=== PATIENT | female | born 1995 | race Caucasian/White ===

== ENCOUNTER 2017-01-26 03:07 | Inpatient (IN) ==
[2017-01-26 04:30] LABS: Apearance,Urine CLOUDY (Clear); Bacteria,Urine Occasional /HPF (Few); Bilirubin,Urine Negative (Negative); Blood, Urine Negative (Negative); Glucose,Urine (UA) Negative (Negative); Ketones,Urine Negative (Negative); Mucus,Urine Occasional /LPF (Occasional); Nitrite,Urine Negative (Negative); Protein,Urine Negative; RBC,Urine 4 /HPF (0-4); Squamous Epithelial Cell,Urine Occasional /HPF (0-10); Urine Color Yellow (Yellow); Urine Specific Gravity 1.008 (1.001-1.035); Urine Urobilinogen < 2.0 EU/DL (0.2-1.0); WBC,Urine 22 /HPF (0-6)
--- NOTE | 2017-01-26 07:26 | History and Physical Update ---
History and Physical Update - Dictation Physical: refer to scanned H&P - Physical Exam Mental Status: alert and oriented Heart: regular rate and rhythm Lung: clear to auscultation Abdomen: within normal limits Vitals: within normal limits History and Physical Changes: 39w4d presents in early labor.
[2017-01-26] MEDS ORDERED: LACTATED RINGERS 1,000 ML IV ONE (07:54)
[2017-01-26] MEDS ORDERED: ONDANSETRON 4 MG/2 ML VIAL IV ONE (07:54)
[2017-01-26] MEDS ORDERED: CITRIC ACID/SODIUM CITRATE 30 ML UDCUP PO ONE (07:54)
[2017-01-26] MEDS ORDERED: ePHEDrine 50 MG/ML AMP IV PRN (07:54)
[2017-01-26] MEDS ORDERED: fentaNYL 2 MCG/ROPIV 0.2% EPID 150 ML EPIDURAL SCH (07:54)
[2017-01-26] MEDS ORDERED: FAMOTIDINE 20 MG/2 ML VIAL IV ONE (07:54)
[2017-01-26] MEDS ORDERED: diphenhydrAMINE 50 MG/1 ML VIAL IV PRN (07:54)
[2017-01-26] MEDS ORDERED: PROMETHAZINE 25 MG/1 ML VIAL IM ONE (07:54)
[2017-01-26] MEDS ORDERED: hydrOXYzine HCL 25 MG/1 ML VIAL IM PRN (07:54)
[2017-01-26] MEDS ORDERED: OXYTOCIN/LR 20 UNIT/1,000 ML BAG IV SCH (08:00)
[2017-01-26 08:09] LABS: Basophils % 0.2 % (0.0-0.8); Eosinophils # 0.1 10*3/uL (0.0-0.87); Eosinophils % 0.5 % (0.00-10.9); Hematocrit 37.5 VOL% (35.7-47.0); Hemoglobin 12.9 GM/DL (12.0-16.0); Immature Granulocytes % 0.4 %; Immature Granulocytes Absolute 0.05 #; Lymphocytes % 23.6 % (21.3-54.2); Mean Corpuscular HGB Conc 34.4 GM/DL (32-36); Mean Corpuscular Hemoglobin 31 PG (27-34); Mean Corpuscular Volume 89.7 FL (87-102); Mean Platelet Volume 13.7 FL (9.6-12.0); Monocytes # 0.7 10*3/uL (0.11-0.8); Monocytes % 5.5 % (1.7-12.7); Neutrophils # 8.7 10*3/uL (1.4-7.4); Neutrophils % 69.8 % (38.7-73.9); Platelet Count 171 T/CUMM (130-400); Red Blood Count 4.18 MC/CUMM (3.8-5.5); Red Cell Distribution Width 14.2 % (9.3-17.3); White Blood Count 12.5 T/CUMM (4-12)
[2017-01-26] MEDS: LACTATED RINGERS 1,000 ML IV SCH ×3 (08:56→16:56)
[2017-01-26] MEDS ORDERED: BUTORPHANOL 2 MG/ML VIAL IV PRN (10:52)
[2017-01-26] MEDS ORDERED: miSOPROStol 200 MCG TABLET ONE (15:39)
[2017-01-26] MEDS ORDERED: LANOLIN 50% CREAM 0.3 OZ TUBE TOP PRN (18:24)
[2017-01-26] MEDS ORDERED: ACETAMINOPHEN 325 MG TABLET PO PRN (18:24)
[2017-01-26] MEDS ORDERED: WITCH HAZEL PADS 100/JAR TOP PRN (18:24)
[2017-01-26] MEDS ORDERED: OXYTOCIN/LR 20 UNIT/1,000 ML BAG IV ONE (18:24)
[2017-01-26] MEDS ORDERED: BISACODYL 10 MG SUPP RECTAL PRN (18:24)
[2017-01-26] MEDS ORDERED: HYDROCORTISONE 2.5% RECTAL CREAM 30 GM TUBE TOP PRN (18:24)
[2017-01-26] MEDS ORDERED: RHO(D) IMMUNE GLOBULIN 300 MCG SYRINGE IM ONE (18:24)
[2017-01-26] MEDS ORDERED: MEASLES/MUMPS/RUBELLA VACCINE 0.5 ML VIAL SUBCUT ONE (18:24)
[2017-01-26] MEDS ORDERED: BENZOCAINE 20%/MENTHOL 0.5% SPRAY 56 GM CAN TOP PRN (18:24)
[2017-01-26] MEDS ORDERED: oxyCODONE/ACETAMINOPHEN 5-325 MG TABLET PO PRN (18:24)
[2017-01-26] MEDS ORDERED: ONDANSETRON 4 MG/2 ML VIAL IV PRN (18:24)
[2017-01-26] MEDS ORDERED: DIPH/TET/ACEL PERT BOOSTER VACCINE 0.5 ML VIAL IM ONE (18:24)
--- NOTE | 2017-01-26 18:28 | Operative Note ---
Date of procedure: 01/26/17 Pre-op diagnosis: 39 wks, early labor Post-op diagnosis: same Procedure: 2nd degree perineal laceration, repaired; bilateral periurethral lacerations; repaired; Placement of vaginal packing due to posterior introitus bleeding that persisted despite multiple sutures placed in this area. Patient progressed to complete and pushing with labor epidural and Pitocin augmentation and delivered a viable male over lacerations as noted above. Baby delivered by the nurse just before my arrival. Loose nuchal cord reduced at delivery. Baby was bulb suctioned, cord was doubly clamped and cut and baby was placed on mother's belly. Cord blood was collected and placenta was delivered intact. Lacerations were repaired with 2-0 and 3-0 chromic with good approximation. The posterior introitus continued to bleed despite several figure of 8 stitches of 2-0 chromic so vaginal packing with neosporin ointment was placed. Fundus is firm. Estimated blood loss 600 mL. Complications none. Patient is stable and the baby is stable. Anesthesia: epidural Surgeon / Physician: Kierra Bergman Estimated blood loss: other (600cc) Specimens: other (placenta to path; cord blood to lab) Condition: stable Disposition: no change Results - Labs CBC & BMP: 01/26/17 08:07 Discharge Plan - Discharge Medications No Action Vit No.124/Iron/Folic [ Vitamin Tablet] 1 tablet PO DAILY MDD ONE TAB - Follow Up or Referral - Forms/Instructions
[2017-01-26] MEDS: DOCUSATE SODIUM 100 MG CAPSULE PO SCH (21:33)
[2017-01-26] MEDS: oxyCODONE/ACETAMINOPHEN 5-325 MG TABLET PO PRN (22:00)
[2017-01-27 06:11] LABS: Basophils % 0.2 % (0.0-0.8); Eosinophils # 0.1 10*3/uL (0.0-0.87); Eosinophils % 0.5 % (0.00-10.9); Hematocrit 32.9 VOL% (35.7-47.0); Hemoglobin 11.3 GM/DL (12.0-16.0); Immature Granulocytes % 0.5 %; Immature Granulocytes Absolute 0.06 #; Lymphocytes # 2.2 10*3/uL (1.4-4.0); Lymphocytes % 17.6 % (21.3-54.2); Mean Corpuscular HGB Conc 34.3 GM/DL (32-36); Mean Corpuscular Hemoglobin 30 PG (27-34); Mean Platelet Volume 13.5 FL (9.6-12.0); Monocytes % 7.9 % (1.7-12.7); Neutrophils # 9.1 10*3/uL (1.4-7.4); Neutrophils % 73.3 % (38.7-73.9); Platelet Count 143 T/CUMM (130-400); Red Blood Count 3.74 MC/CUMM (3.8-5.5); White Blood Count 12.5 T/CUMM (4-12)
[2017-01-27] MEDS: IBUPROFEN 800 MG TABLET PO PRN (08:00)
[2017-01-27] MEDS: DOCUSATE SODIUM 100 MG CAPSULE PO SCH ×2 (09:15→19:25)
[2017-01-27] MEDS: oxyCODONE/ACETAMINOPHEN 5-325 MG TABLET PO PRN ×2 (13:05→19:25)
--- NOTE | 2017-01-28 06:49 | Anesthesia Post-Op ---
Anesthesia Post OP - Post Ansesthetic Evaluation Patient seen in post op: Yes Resp: within normal limits CV: within normal limits Mental: within normal limits Temp: within normal limits Sivs-[id number]-[id number]: within normal limits Nausea and Vomiting: within normal limits Pain: within normal limits
[2017-01-28] MEDS: IBUPROFEN 800 MG TABLET PO PRN (07:45)
[2017-01-28 07:52] VITALS: BP 110/61
--- NOTE | 2017-01-28 08:41 | OB/GYN Progress Note ---
Assessment and Plan (1) Vaginal delivery Status: Acute Assessment and plan: Routine care Current Visit: Yes [employer] - PN: Subj Interval history: NOTE FOR 01/27/17: PPD#1 Doing well. Vaginal packing placed at delivery removed intact with no evidence of active bleeding. Pt voiding without difficulty. Exam [employer]IVER - Constitutional Vitals: Vital Signs Temp Pulse Resp BP Pulse Ox 01/28/17 07:51 98.1 F 86 18 110/61 97 01/28/17 04:00 97.6 F 76 18 123/62 99 01/27/17 23:20 97.4 F L 86 20 121/64 95 01/27/17 19:07 97.4 F L 88 20 127/78 98 01/27/17 15:49 98.6 F 83 20 117/56 98 01/27/17 14:00 20 01/27/17 11:32 98.1 F 85 20 118/57 97 General appearance: no acute distress, over weight - Head Head exam: Present: normal inspection, normocephalic - Eye Eye exam: Present: EOMI - Respiratory Respiratory exam: Present: clear to auscultation bilaterally - Cardiovascular Cardiovascular exam: Present: regular rate and rhythm - GI/Abdominal GI/Abdominal exam: Present: soft (fundus firm, nontender) - Extremities Exam Extremities exam: Present: normal inspection - Neurological Exam Neurological exam: Present: alert, oriented X3 - Psychiatric Psychiatric exam: Present: normal affect, normal mood - Skin Skin exam: Present: normal color, warm Results - Labs CBC & BMP: 01/27/17 05:37 Lab Results: I have reviewed the past 24 hour labs
--- NOTE | 2017-01-28 08:42 | Discharge Summary ---
Hospital Course - Hospital Course Hospital Course: Admitted in early labor at 39 + weeks. Delivered without complications. Her course was unremarkable except that she did very well. Diagnosis - Discharge Diagnosis (1) Vaginal delivery Status: Acute Specialty Discharge - Follow Up or Referrals Discharge Plan - Discharge Data Disposition: Disch To Home/Self Care Condition at Discharge: Stable Discharge Diet: regular diet Activity: other (pelvic rest x 6 wks) Hygiene: may shower Weight Bearing at Discharge: full weight bearing Driving: no restrictions (if not taking narcotics) Contact your physician if you experience:: fever over 101, Difficulty voiding, Redness or swelling, Nausea/Vomiting, Shortness of breath, Bleeding, pain uncontrolled by pain medications - Discharge Medications New Ibuprofen Tab [Motrin Tab] 800 mg PO Q6H PRN #30 tablet PRN Reason: Pain Moderate (4-7) oxyCODONE/ACETAMINOPHEN 5-325 [Percocet 5-325] 1 tablet PO Q6H PRN #20 tablet PRN Reason: Pain Severe (8-10) No Action Vit No.124/Iron/Folic [ Vitamin Tablet] 1 tablet PO DAILY MDD ONE TAB - Follow Up or Referral Follow Up: Kierra Bergman DO [Physician] - (6 wks) - Forms/Instructions Instructions: Perineal Care (DC), Vaginal Delivery (DC), Bleeding (DC) Exam - Constitutional Vitals: Period Temp Pulse Resp BP Sys/Moore Pulse Ox Last 24 Hr 97.4 F-98.6 F 76-88 18-20 110-127/56-78 95-99 General appearance: no acute distress, over weight - Head Head exam: Present: normal inspection, normocephalic - Eye Eye exam: Present: EOMI - Respiratory Respiratory exam: Present: clear to auscultation bilaterally - Cardiovascular Cardiovascular exam: Present: regular rate and rhythm - GI/Abdominal GI/Abdominal exam: Present: soft (fundus firm, nontender) - Extremities Exam Extremities exam: Present: normal inspection - Neurological Exam Neurological exam: Present: alert, oriented X3 - Psychiatric Psychiatric exam: Present: normal affect, normal mood - Skin Skin exam: Present: normal color, warm Discharge Results Procedures and tests throughout hospitalization: Pending Orders 01/26/17 Urine Culture Routine Labs on day of discharge: Preliminary micro results at discharge 01/26/17 Unknown Urine Culture - Preliminary Urine,Voided No Growth at 24 hours. DS: Provider Date of admission: 01/26/17 06:20 Attending physician on admission: Nathaniel Tariq DO Consults: 01/26/17 18:25 Consult to Executive Relations Specialist [CONS] Routine Consult Executive Relations Specialist: Breast Feeding Discharging clinician: Kierra Bergman DO Expected date of discharge: 01/28/17
[2017-01-28] MEDS: DOCUSATE SODIUM 100 MG CAPSULE PO SCH (09:28)
--- NOTE | 2017-01-28 11:19 | Pathology Report from [facility] ---
[facility] ACCESSION # : [id number] PATIENT NAME : Philipp Shipman ORDERING DR : HERMINIO PHAM CLINICAL HX: AB1 @ 39 wks gestation POST-OP DX: Same SPECIMEN INFO: Placenta GROSS DESCRIPTION: Received fresh labeled with the patients name and consists of a 572 gram placenta which measures 18.0 x 19.5 x 2.5 cm. membranes are pink-nuñez and translucent. The umbilical cord measures 42.0 cm, contains three vessels and is eccentrically inserted. The surface is blue-nails and intact. The maternal surface displays intact, red-nails cotyledons with no abnormalities appreciated upon sectioning. Sections submitted: A membranes and cord, B and maternal surfaces. DIAGNOSIS FOR PHILIPP SHIPMAN: PLACENTA, MEMBRANES, UMBILICAL CORD: Focal placental infarction with dystrophic calcification, mild intervillous blood. Tri -vessel umbilical cord, eccentrically inserted. Membranes with attached blood and fibrin. COLLECTED DATE: 01/27/2017 [facility] REPORT DATE: 01/28/2017 ELECTRONICALLY SIGNED BY: Colette Rivera M.D. 01/28/2017 - 10:13:54 EM
== END 2017-01-28 12:25 | disposition home or self-care (01) | DRG 774 ==
LOC: N.LDOUT 03:07 → N.LD 03:08 → N.OB 20:52
PROVIDERS: ADMIT Obstetrics & Gynecology; ATTEND Obstetrics & Gynecology

== ENCOUNTER 2021-04-10 16:39 | Inpatient (IN) ==
[2021-04-10] MEDS ORDERED: MEPERIDINE 50 MG/1 ML VIAL IV PRN (16:55)
[2021-04-10] MEDS ORDERED: ONDANSETRON 4 MG/2 ML VIAL IV PRN ×2 (16:55→19:21)
[2021-04-10] MEDS ORDERED: BUTORPHANOL 2 MG/ML VIAL IV PRN (16:55)
[2021-04-10] MEDS ORDERED: LIDOCAINE 1% 50 ML VIAL MISC INJ ONE (16:55)
[2021-04-10] MEDS ORDERED: LACTATED RINGERS 1,000 ML IV SCH ×2 (17:00→19:30)
[2021-04-10 17:11] LABS: Basophils % 0.1 % (0.0-0.8); Eosinophils % 0.3 % (0.00-10.9); Hematocrit 38.4 VOL% (35.7-47.0); Hemoglobin 12.7 GM/DL (12.0-16.0); Immature Granulocytes % 0.5 %; Immature Granulocytes Absolute 0.07 #; Lymphocytes # 3.4 10*3/uL (1.4-4.0); Lymphocytes % 24.9 % (21.3-54.2); Mean Corpuscular HGB Conc 33.1 GM/DL (32-36); Mean Corpuscular Volume 92.5 FL (87-102); Mean Platelet Volume 13.4 FL (9.6-12.0); Monocytes % 4.5 % (1.7-12.7); Neutrophils % 69.7 % (38.7-73.9); Platelet Count 180 T/CUMM (130-400); Red Blood Count 4.15 MC/CUMM (3.8-5.5); Red Cell Distribution Width 13.3 % (9.3-17.3); White Blood Count 13.8 T/CUMM (4-12)
[2021-04-10 17:26] LABS: Alanine Aminotransferase 18 U/L (13-56); Albumin 2.5 G/DL (3.4-5.0); Alkaline Phosphatase 88 U/L (45-117); Aspartate Amino Transferase 16 U/L (0-37); Bilirubin,Total < 0.39 MG/DL (0.20-1.00); Blood Urea Nitrogen 7 MG/DL (7-18); Carbon Dioxide 21 MMOL/L (21-32); Estimated Glom Filtration Rate 181 ML/MIN; Glucose 73 MG/DL (74-106); Osmolality,Calculated 277.3 MOS/KG (273-304); Potassium 3.7 MMOL/L (3.5-5.1); Sodium 141 MMOL/L (136-145); Total Protein 6.2 G/DL (6.4-8.2)
[2021-04-10] MEDS ORDERED: FAMOTIDINE 20 MG/2 ML VIAL IV ONE (17:38)
[2021-04-10] MEDS ORDERED: CITRIC ACID/SODIUM CITRATE 30 ML UDCUP PO ONE (17:38)
[2021-04-10] MEDS ORDERED: ceFAZolin 2,000 MG/50 ML DUPLEX IV ONE (17:38)
[2021-04-10] MEDS ORDERED: BUPIVACAINE SPINAL 0.75% 2 ML AMP SPINAL ONE (18:12)
[2021-04-10] MEDS ORDERED: OXYTOCIN/LR 20 UNIT/1,000 ML BAG IV ONE ×2 (18:45→19:21)
[2021-04-10 19:10] LABS: Cord Arterial Blood HCO3 22.7 MMOL/L
[2021-04-10 19:12] LABS: Cord Venous Blood HCO3 23.8 MMOL/L; Cord Venous Blood PCO2 37.5 MMHG; Cord Venous Blood PO2 20.5
[2021-04-10 19:16] LABS: Bilirubin,Urine Negative (Negative); Blood, Urine Negative (Negative); Glucose,Urine (UA) Negative (Negative); Ketones,Urine 20 mg/dL (Negative); Mucus,Urine Occasional /LPF (Occasional); Nitrite,Urine Negative (Negative); Protein,Urine Negative; RBC,Urine 1 /HPF (0-4); Squamous Epithelial Cell,Urine Occasional /HPF (0-10); Urine Appearance CLEAR (Clear); Urine Color Yellow (Yellow); Urine Specific Gravity 1.015 (1.001-1.035); Urine Urobilinogen < 2.0 EU/DL (0.2-1.0)
[2021-04-10] MEDS ORDERED: MAGNESIUM HYDROXIDE SUSP 30 ML UDCUP PO PRN (19:21)
[2021-04-10] MEDS ORDERED: SIMETHICONE CHEW 80 MG TABLET PO PRN (19:21)
[2021-04-10] MEDS ORDERED: ACETAMINOPHEN 325 MG TABLET PO PRN (19:21)
[2021-04-10] MEDS ORDERED: RHO(D) IMMUNE GLOBULIN 300 MCG SYRINGE IM ONE ×2 (19:21→20:00)
[2021-04-10] MEDS: KETOROLAC 30 MG/1 ML VIAL IV SCH (20:55)
[2021-04-10] MEDS: ACETAMINOPHEN 500 MG TABLET PO SCH (20:55)
[2021-04-10] MEDS: DOCUSATE SODIUM 100 MG CAPSULE PO SCH (20:55)
[2021-04-10] MEDS ORDERED: MIDAZOLAM 2 MG/2 ML VIAL ONE (21:07)
[2021-04-10] MEDS ORDERED: ONDANSETRON 4 MG/2 ML VIAL ONE (21:07)
[2021-04-10] MEDS ORDERED: PHENYLEPHRINE 1 MG/10 ML SYRINGE IV ONE (21:07)
[2021-04-11] MEDS ORDERED: diphenhydrAMINE 50 MG/1 ML VIAL IV ONE (00:29)
[2021-04-11] MEDS: ACETAMINOPHEN 500 MG TABLET PO SCH ×2 (03:19→08:56)
[2021-04-11] MEDS: KETOROLAC 30 MG/1 ML VIAL IV SCH ×2 (03:20→08:56)
[2021-04-11 04:28] LABS: Basophils % 0.1 % (0.0-0.8); Eosinophils % 0.3 % (0.00-10.9); Hematocrit 30.9 VOL% (35.7-47.0); Immature Granulocytes % 0.6 %; Immature Granulocytes Absolute 0.05 #; Lymphocytes # 2.3 10*3/uL (1.4-4.0); Lymphocytes % 25.3 % (21.3-54.2); Mean Corpuscular HGB Conc 33.7 GM/DL (32-36); Mean Corpuscular Volume 93.6 FL (87-102); Mean Platelet Volume 13.5 FL (9.6-12.0); Monocytes % 4.3 % (1.7-12.7); Neutrophils % 69.4 % (38.7-73.9); Platelet Count 148 T/CUMM (130-400); Red Cell Distribution Width 13.2 % (9.3-17.3)
[2021-04-11 04:29] LABS: Hemoglobin 10.4 GM/DL (12.0-16.0); White Blood Count 9.1 T/CUMM (4-12)
[2021-04-11 04:52] LABS: Hypochromasia 1+; Platelet Estimate Adequate
[2021-04-11] MEDS: DOCUSATE SODIUM 100 MG CAPSULE PO SCH ×2 (08:56→21:15)
[2021-04-11] MEDS: MULTIVITAMIN (PRENATAL) TABLET PO SCH (08:56)
[2021-04-11] MEDS ORDERED: KETOROLAC 30 MG/1 ML VIAL IV SCH (16:00)
[2021-04-11] MEDS ORDERED: ACETAMINOPHEN 500 MG TABLET PO SCH (16:00)
[2021-04-11] MEDS: oxyCODONE/ACETAMINOPHEN 5-325 MG TABLET PO PRN (20:20)
[2021-04-12] MEDS: MULTIVITAMIN (PRENATAL) TABLET PO SCH (08:18)
[2021-04-12] MEDS: DOCUSATE SODIUM 100 MG CAPSULE PO SCH ×2 (08:18→21:24)
[2021-04-12] MEDS: oxyCODONE/ACETAMINOPHEN 5-325 MG TABLET PO PRN ×5 (08:18→21:25)
[2021-04-12] MEDS: IBUPROFEN 800 MG TABLET PO PRN (21:24)
[2021-04-13] MEDS: oxyCODONE/ACETAMINOPHEN 5-325 MG TABLET PO PRN (07:54)
[2021-04-13] MEDS: MULTIVITAMIN (PRENATAL) TABLET PO SCH (07:54)
[2021-04-13] MEDS: IBUPROFEN 800 MG TABLET PO PRN (07:55)
[2021-04-13] MEDS: DOCUSATE SODIUM 100 MG CAPSULE PO SCH (07:56)
[2021-04-13 08:31] VITALS: BP 117/94
== END 2021-04-13 11:50 | disposition home or self-care (01) | DRG 540 ==
LOC: N.LDOUT 16:39 → N.LD 16:42
PROVIDERS: ADMIT Obstetrics & Gynecology; ATTEND Obstetrics & Gynecology
PROC: LDCSECT (ICD-10-PCS; 2021-04-10 18:00)